=== PATIENT | female | born 1950 | race Caucasian/White ===

== ENCOUNTER → 2016-06-11 | Outpatient (REF) | LOC: ZLAB.WCH 10:59 | DX: Z01.89 Encounter for other specified special examinations (principal) ==

== ENCOUNTER → 2016-06-11 | Outpatient (REF) | LOC: ZLAB.WCH 14:43 | DX: Z01.89 Encounter for other specified special examinations (principal) ==

== ENCOUNTER 2021-08-09 06:35 | Observation (INO) | payer MEDICARE, OTHER ==
[~2021-08-09] VITALS: Ht 167.6 cm; Wt 90.9 kg
[2021-08-09] VITALS (27 sets, daily range): BP systolic 109–150; BP diastolic 68–113; PULSE 77–99; TEMP 98.1–98.8
[~2021-08-09 06:35] MED LIST: AMITRIPTYLINE H75 M1 PO; ASPIRIN 81M81 MG/TA2 PO; CELEXA 20MG20 MG/TAB PO; COZAAR 50MG50 MG/TAB PO; FLEXERIL 1010 MG/TAB PO; FLOVENT 44MCG I13 GM IH; GLUCOPHAGE XR500 M1 PO; GLUCOPHAGE500 MG/TAB PO; LASIX 40MG TABL40 MG PO; NAPROSYN500 MG PO; NORCO 325 MG-51 TAB PO; PEPCID 20MG TAB20 MG PO; RELAFEN 50500 MG/TAB PO; SYNTHROID0.05 MG/TA PO; XANAX 0.5MG0.5 MG PO; ZANTAC 150MG T150 MG PO; ZOCOR 20MG20 MG PO; ZYRTEC 10MG10 MG PO
--- NOTE | 2021-08-09 10:12 | NUR ---
Pt taken by cart back to radiology for follow up CXR, will wait in rm 9.
--- NOTE | 2021-08-09 12:45 | NUR ---
Pt was taken to Surgical rm 344 by wheelchair after report was called to TORRIE Onofre. Pt's accompanies pt to floor, and belongings were sent with pt.
--- NOTE | 2021-08-09 13:00 | NUR ---
Pt currently in room 344. no orders at this time. Notified admissions and Dr Parson that pt was in room. Pt doing well with no pain complaints, just a little achy. Pt is ambulatory and steady on her feet. Oriented pt to her room and educated her on room service once orders are received
--- NOTE | 2021-08-09 16:00 | NUR ---
Pt continues to do well. She has tolerated a general diet, no complaints of pain and is not short of breath.
[2021-08-10 01:11] VITALS: BP 123/66; PULSE 81; TEMP 97.7
--- NOTE | 2021-08-10 02:03 | NUR ---
Patient has been pleasant this evening, no complaints of pain or discomfort. Patient is currently not on O2 via [place], this is her baseline at home. Full body assessment completed and vital signs are WNL. Patient is tolerating PO meds and food well. No other complaints thus far this shift. Call light within reach.
--- NOTE | 2021-08-10 04:00 | NUR ---
Ice pack applied to left chest. Patient states that her shoulder and chest are "achy".
[2021-08-10 04:43] VITALS: BP 124/60; PULSE 76; TEMP 98.6
[2021-08-10 06:22] LABS: BASO % 0.4 % (0.0-2.0); EOS # 0.2 K/mm3 (0.0-0.7); GRAN # 4.1 K/mm3 (1.4-6.5); HEMATOCRIT 38.5 % (37.0-47.0); HEMOGLOBIN 12.2 g/dl (12.5-16.0); LYMPH % 29.2 % (20.0-51.0); MEAN CELL VOLUME 88 fl (80.0-100.0); MEAN CORPUSCULAR HEMOGLOBIN 28 pg (27-31); MEAN CORPUSCULAR HGB CONC 32 g/dl (33.0-37.0); MEAN PLATELET VOLUME 12.3 fl (7.4-10.4); MONO # 0.6 K/mm3 (0.1-0.6); MONO % 8.3 % (1.7-9.3); PLATELET COUNT 168 K/mm3 (130-400); RED BLOOD COUNT 4.36 M/mm3 (4.10-5.30); REDCELL DISTRIBUTION WIDTH-CV 13.8 % (11.5-14.5)
[2021-08-10 06:29] LABS: CALCIUM 8.7 mg/dL (8.4-10.2); CREATININE, serum 0.75 mg/dL (0.57-1.11)
[2021-08-10 07:29] VITALS: BP 109/81; PULSE 87; TEMP 98.5
--- NOTE | 2021-08-10 08:09 | NUR ---
Pt resting with eyes closed, even non labored breathing
--- NOTE | 2021-08-10 09:00 | NUR ---
Pt is doing well this morning. No complaints of feeling short of air. Pt reports no pain, just tender. Pt does have breakfast. She did question if she would be getting breathing treatments, called RT and confirmed she does have inahlers ordered. Francine, RT stated she would be up soon. Pt is hopeful to get to go home. Awaiting results of xray
[2021-08-10 11:14] VITALS: BP 136/71; PULSE 85; TEMP 98.7
--- NOTE | 2021-08-10 14:43 | NUR ---
SW met with pt to complete intake. Pt lives at home with spouse, Garrett [phone]. The pt independent on ADLs and her PCP is Dr. Reynolds and [facility]. Pt is not interested in [facility] at this time. No other needs stated at this time. SW to await further recommendations. DC: Home
--- NOTE | 2021-08-10 15:00 | NUR ---
Called Dr Ansari to determine if Hemilich valve could be removed as pt is hoping to go home. Dr Ansari okay'd for heimlich to come out. Heimlich valve removed and dressing applied. Instructed pt to stay in bed post removal.
[2021-08-10 15:22] VITALS: BP 111/63; PULSE 93; TEMP 97.8
--- NOTE | 2021-08-10 15:30 | NUR ---
Pt resting in bed for 1 hour post valve removal. Pt did get dressed and ready for discharge. Reviewed discharge instructions with pt and her to include making follow up appointment with primary care. INT removed from right hand. Dressing to post heimlich site is CDI. Pt escorted out via wheelchair.
== END 2021-08-10 15:45 | disposition home or self-care (01) ==
LOC: COL.RAD 06:35 → SURG 13:53
PROVIDERS: Physician Assistant; ADMIT Internal Medicine
DX: J95.811 Postprocedural pneumothorax (principal); K21.9 Gastro-esophageal reflux disease without esophagitis; I10 Essential (primary) hypertension; J30.2 Other seasonal allergic rhinitis; J44.9 Chronic obstructive pulmonary disease, unspecified; E11.9 Type 2 diabetes mellitus without complications; E78.5 Hyperlipidemia, unspecified; E03.9 Hypothyroidism, unspecified; Z79.890 Hormone replacement therapy; Z79.84 Long term (current) use of oral hypoglycemic drugs; Z79.899 Other long term (current) drug therapy; Z98.890 Other specified postprocedural states; Z79.82 Long term (current) use of aspirin
CPT/HCPCS: G0378; J3010

== ENCOUNTER → 2021-10-09 | Outpatient (CLI) | payer MEDICARE, OTHER | LOC: COL.PUL 07:23 | DX: J44.9 Chronic obstructive pulmonary disease, unspecified (principal); C34.90 Malignant neoplasm of unspecified part of unspecified bronchus or lung ==